=== PATIENT | male | born 1950 | race Caucasian/White ===

== ENCOUNTER 2020-11-16 10:56 | Emergency (ER) | payer MEDICARE, SELFPAY ==
[2020-11-16] VITALS (13 sets, daily range): BP systolic 129–164; BP diastolic 63–84; PULSE 80–117; RESP 11–47; TEMP 36.5; O2SAT 91–100
--- NOTE | ~2020-11-16 | CT_ITS ---
EXAMINATION: CTA chest PE protocol DATE: 11/16/2020 13:50 INDICATION: Shortness of breath. Atrial fibrillation. TECHNIQUE: Computed tomography angiography (CTA) of the chest was performed with 100 mL Omnipaque-350 intravenous contrast timed to evaluate the pulmonary arteries. Coronal maximum intensity projection 3D-reconstructions were created by the technologist. Automated exposure control and iterative reconst ruction technique were employed. Exam dose: 407.88 mGy-cm total exam DLP. COMPARISON: 11/16/2020 portable AP chest 10/27/2014 CT chest FINDINGS: There is diagnostic contrast enhancement of the pulmonary arteries and no pulmonary embolis m. Normal heart size. Coronary artery calcifications. Thoracic aortic and great vessel calcifications. No thoracic aortic aneurysm or dissection. No hilar or mediastinal mass lesion or lymphadenopathy. No pericardial or pleural effusion. Normal morphology of the adrenal glands. There is scoliosis and degenerative spurring of the thoracic spine. Mild emphysematous changes of the lungs. No pulmonary infiltrate or consolidation or pulmonary mass lesion. IMPRESSION: No evidence of pulmonary embolism Reviewed, dictated and finalized at [facility]. Reviewed, dictated and finalized at [facility].
--- NOTE | ~2020-11-16 | XR_ITS ---
XR chest 1V portable DATE: 11/16/2020 12:38 INDICATION: Shortness of breath. Atrial fibrillation. TECHNIQUE: 2 portable upright AP views on 11/26/2020 at 1234 hours COMPARISON: 10/27/2014 CT chest FINDINGS: Bilateral hyperinflation suggesting obstructive airways disease. No pulmonary infiltrate or consolidation. Normal heart size. Is aortic arch calcification. No hilar or mediastinal enlargement. No pleural effu sudarshan or pulmonary vascular congestion or pneumothorax. IMPRESSION: Bilateral hyperinflation; no active cardiopulmonary disease Reviewed, dictated and finalized at [facility].
--- NOTE | 2020-11-16 11:57 | PC.NURSE ---
No change in appearance or status since arrival. Sitting upright in wheelchair.
--- NOTE | 2020-11-16 12:17 | ED.GENADULT ---
HPI - General Adult General Chief complaint: Unspecified Stated complaint: bilat leg pain Time Seen by Provider: 11/16/20 12:14 Source: patient and family Mode of arrival: EMS Limitations: no limitations History of Present Illness HPI narrative: 70-year-old male with reported history of hypertension, A. fib, chronic alcohol use brought in by family to be cleared for hospice --according to family patient is a daily drinker, does not take any medicines has not seen a physician in over 2 years. Has not taken any prescription medications in over 2 years for his conditions. Patient's complaint is that he cannot walk, has become increasingly immobile over time and weak. No fever, no vomiting, no hematemesis, no dark tarry stools. Patient drinks daily last drink was this morning. States he does go into withdrawal without alcohol. No abdominal pain, no dysuria, no hematuria. Patient does complain of bilateral lower extremity pain worse at night improves with taking feet over the bed consistent with rest pain. On exam feet are warm somewhat dusky DP 1+ bilateral for the past few months. Patient's family is requesting hospice care for patient. They were told they need to get a form signed by . I explained that we can work him up and look for any acute illness and that I would have case management discuss their options regarding hospice. Related Data Allergies Allergy/AdvReac Type Severity Reaction Status Date / Time No Known Allergies Allergy Unverified 10/27/14 11:35 Review of Systems Review of Systems: CONSTITUTIONAL: no fever, positive for weight loss EYES: no vision changes, no eye pain ENT: no rhinorrhea, no sore throat, no difficulty swallowing CARDIOVASCULAR: no chest pain, no leg edema, positive for palpitations RESPIRATORY: no cough, no shortness of breath, no hemoptysis GASTROINTESTINAL: positive for abdominal pain, no nausea, no melena, no hematemesis GENITOURINARY: no flank pain, no dysuria, no hematuria SKIN: no rash, no jaundice MUSCULOSKELETAL: no back pain, no trauma BLE pain worse at night NEUROLOGIC: No headache, no focal weakness PSYCHIATRIC: No hallucinations, no suicidal ideation [facility] Past Medical History Medical History Anxiety Atrial fibrillation Chronic pain of left ankle Depression Elevated ferritin Elevated liver enzymes Elevated TSH ETOH abuse HTN (hypertension) Type 2 diabetes mellitus with polyneuropathy Family History Family History Father Malignant neoplasm of prostate Family history of coronary artery disease Mother Family history of diabetes mellitus in first degree relative Grandparent Diabetes mellitus Social History Social History Smoking status: Never smoker Alcohol intake: current Exam Narrative: General: alert, afebrile, answering all questions appropriately Head: normocephalic, atraumatic Eyes: EOMI bilaterally, anicteric, no injection ENT: dry mucous membranes, oropharynx patent, no rhinorrhea Neck: supple, trachea midline Chest: equal chest rise bilaterally, no chest wall trauma noted Lungs: clear to auscultation bilaterally, respirations unlabored CV: irregular, 1+ BLEE calf size equal bilaterally Abd: distended, reducible ventral hernia noted,no rebound, no gaurding, negative Clements's : no CVA tenderness B, bladder non-distended EXT: no deformity noted; Feet dusky; DP 1+ BLE APROM intact Skin: warm, dry, pale Neuro: alert, oriented x 3; CN 2-12 grossly intact, no dysarthria Psych: affect appropriate, though content normal Course Course Emergency Course: Case management consulted for possible hospice. I discussed with family that I am not comfortable signing consult for hospice as his renal function is normal his liver function is impaired but he is not in liver failure. He is not coagulopathic his am
--- NOTE | 2020-11-16 12:22 | ECG_ITS ---
Measurements Intervals [place] Rate: 103 P: 102 PA: 160 QRS: 55 QRSD: 113 T: -14 QT: 377 QTc: 495 Interpretive Statements SINUS TACHYCARDIA RIGHT BUNDLE BRANCH BLOCK BASELINE ARTIFACT- I, III, AVR, AVL, AVF ABNORMAL ECG Electronically Signed On 11-16-2020 15:12:23 CDT by Doroteo Cortes D.O.
[2020-11-16] MEDS: SODIUM CHLORIDE 0.9% IV 1,000 ML 999 ML IV CONT (12:47)
[2020-11-16 12:57] LABS: Basophils Absolute Auto 0.1 K/mm3 (0.0-0.1); Basophils Percent Auto 0.6 % (0.2-1.2); Eosinophils Absolute Auto 0.1 K/mm3 (0-0.3); Eosinophils Percent Auto 0.5 % (0-4.4); Hematocrit 32.5 % (42.0-52.0); Hemoglobin 11.7 g/dL (14.0-18.0); Immature Granulocyte Absolute 0.08 K/mm3 (0.00-0.031); Immature Granulocyte Percent A 0.6 % (0-0.5); Lymphocytes Absolute Auto 0.91 K/mm3 (0.9-3.2); Lymphocytes Percent Auto 7.3 % (18.3-44.2); Mean Corpuscular Hemoglobin 42.5 pg (26-34); Mean Corpuscular Volume 118.2 fl (80-100); Mean Platelet Volume 8.9 fl (7.4-10.4); Monocytes Absolute Auto 0.7 K/mm3 (0.1-0.6); Monocytes Percent Auto 5.5 % (2.6-8.5); Neutrophils Absolute Auto 10.7 K/mm3 (1.3-6.7); Neutrophils Percent Auto 85.5 % (45.5-73.1); Nucleated Red Blood Cells Perc 0.2 % (0.0-0.2); Platelet Count Result 236 k/mm3 (150-375); Red Blood Count 2.75 M/mm3 (4.6-6.20); Red Cell Distribution Width 14.3 % (11.5-14.5); White Blood Count 12.6 K/mm3 (4.5-10.0)
[2020-11-16 13:07] LABS: Ammonia 18 umol/L (9-30); Ethanol < 10 mg/dL (<10); INR 1.1; Prothrombin Time 14.3 Seconds (11.1-14.7)
[2020-11-16 13:08] LABS: Partial Thromboplastin Time 33.5 SECONDS (22.3-36.8)
[2020-11-16 13:11] LABS: Alanine Aminotransferase 28 U/L (4-50); Albumin Level 4.2 g/dL (3.5-5.1); Alkaline Phosphatase 158 U/L (38-126); Anion Gap 18 mmol/L (8-16); Aspartate Amino Transferase 102 U/L (17-59); Bilirubin,Total 3.3 mg/dL (0.2-1.3); Blood Urea Nitrogen 9 mg/dL (9-20); Calcium 8.6 mg/dL (8.4-10.2); Carbon Dioxide 24 mmol/L (22-30); Chloride 97 mmol/L (98-107); Estimated CRCL calculation 129 ml/min; Estimated Glomerular Filt Rate > 60; Glucose 173 mg/dL (65-110); Lipase 26 U/L (23-300); Magnesium 1.1 mg/dL (1.6-2.3); Sodium 139 mmol/L (137-145)
[2020-11-16 13:23] LABS: Troponin I 0.023 ng/mL (0.000-0.034)
[2020-11-16 14:35] LABS: Add Urine Microscopic? YES; Amorphous Sediment Urine Few; Appearance Urine Clear (Clear); Bilirubin Urine Negative (Negative); Blood Urine Negative (Negative); Color Urine Amber (Yellow); Glucose Urine UA Negative (Negative); Ketones Urine 1+ mg/dL (Negative); Leukocyte Esterase Ur Negative LEU/UL (Negative); Nitrate Urine Negative (Negative); Protein Urine Negative (Negative); RBC Urine 0-2 /hpf (0-2); Specific Grav Ur 1.016 (1.001-1.035); Squamous Epithelial Cell Urine Rare /hpf (Few); WBC Urine 0-3 /hpf
[2020-11-16] MEDS: MAGNESIUM SULF 2 GM/WATER 50ML 2 GM/50 ML BAG IVPB (14:40)
--- NOTE | 2020-11-16 15:21 | PCCCNOTE ---
Spoke with pt and his daughter Johnna while in ED. Johnna would like to get help to sign pt up for hospice. The patient has spoken with [facility] in the past. He has a DrBaldomero appointment with his PMD office on 11/22/2020 to discuss hospice. Pt is a alcoholic and drinks to take care of the pain he has in his legs. Pt has dx of HTN and diabetes and alcoholism. Johnna reports the pt is nauseated and is unable to eat. No food tastes good and the family has tried everything. Contacted [facility] and spoke to Kirstin who states without a order they can not see him. He just recently started having diarrhea and has took Imodium. ER MD states pt labs and vital signs are within normal limits and she will not order hospice that the pt should talk with his PMD. is on phone and tearful and wanting her to get help. Johnna reports pt has lost alot of weight due to not eating due to nausea. Pt states he does not want to live with the pain and nausea. Encouraged pt to keep his appointment on the with his PMD.
[2020-11-16] MEDS: POTASSIUM CHLORIDE 20 MEQ PACKET (FOR LIQUID) 40 MEQ PO (15:52)
== END 2020-11-16 16:09 | disposition home or self-care (01) ==
PROVIDERS: Emergency Provider Emergency Medicine
DX: I48.91 Unspecified atrial fibrillation (principal); E83.42 Hypomagnesemia; E87.6 Hypokalemia; F10.20 Alcohol dependence, uncomplicated; I10 Essential (primary) hypertension; E11.9 Type 2 diabetes mellitus without complications
CPT/HCPCS: 36415; 71045; 71275; 80053; 80307; 81001; 82140; 83690; 83735; 84484; 85025; 85610; 85730; 93005; 96361; 96365; 99284; A9270; J3475; J7030; Q9967